=== PATIENT | male | born 1955 | race Caucasian/White ===

== ENCOUNTER → 2021-03-13 | Outpatient (CLI) | payer BC ==
[~2021-03-13] MED LIST: CALCIUM CITRAT1 EA19 PO; K2 PLUS D3 TAB1 EACH PO; METHYLPHENIDATE10 M3 PO; PROSTATE CONTR1 EACH PO; SAW PALMETTO450 M1 PO; SERTRALINE HYDR25 MG PO; TURMERIC538 MG PO; TYLENOL EXTRA500 MG PO; VIAGRA100 MG PO; VITAMIN B121000 MC1 PO; VITAMIN C500 M8 PO; ZINC50 M4 PO
[2021-03-13 16:37] LABS: BASO # 0.1 10*3/uL (0.0-0.1); BASO % 0.7 % (0.0-1.0); EOS # 0.2 10*3/uL (0.0-0.4); EOS % 2.1 % (1.0-4.0); HEMATOCRIT 44.1 % (42.0-52.0); LYMPH # 2.2 10*3/uL (1.3-4.4); LYMPH % 28.6 % (27.0-41.0); MEAN CELL VOLUME 92.5 fl (80.0-94.0); MEAN CORPUSCULAR HGB CONC 33.6 g/dl (33.0-37.0); MEAN PLATELET VOLUME 10.5 fl (9.6-12.3); MONO # 0.6 10*3/uL (0.1-1.0); MONO % 7.9 % (3.0-9.0); NEUT # 4.6 10*3/uL (2.3-7.9); NEUT % 60.3 % (47.0-73.0); PLATELET COUNT AUTOMATED 197 10*3/uL (130-400); RED BLOOD COUNT 4.77 10*6/uL (4.50-5.90); RED CELL DISTRI WIDTH 12.6 % (0-14.5); WHITE BLOOD COUNT 7.7 10*3/uL (4.8-10.8)
[2021-03-13 17:10] LABS: ALBUMIN 3.8 gm/dl (3.1-4.5); ALKALINE PHOSPHATASE 113 U/L (45-117); BUN 23 mg/dl (7-24); CHLORIDE 110 mmol/L (98-107); CHOLESTEROL 132 mg/dL (<200); CREATININE 0.97 mg/dL (0.70-1.30); HDL CHOLESTEROL 31 mg/dl (40-60); LDL CHOLESTEROL 53 mg/dL (9-159); SGOT/AST 28 IU/L (3-35); SGPT/ALT 42 U/L (12-78); SODIUM 140 mmol/L (136-145); TOTAL PROTEIN 7.4 gm/dL (6.4-8.2); TRIGLYCERIDES 238 mg/dl (<150); VLDL CHOLESTEROL 48 mg/dL (6-40)
[2021-03-14 14:09] LABS: t-TRANSGLUTAMINASE (tTG) IGA <2 U/mL (0-3); t-TRANSGLUTAMINASE (tTG) IgG 4 U/mL (0-5)
== END | disposition home or self-care (01) ==
LOC: LAB 16:15
PROVIDERS: Internal Medicine Gastroenterology
DX: Z12.5 Encounter for screening for malignant neoplasm of prostate (principal); R53.83 Other fatigue; A08.8 Other specified intestinal infections; Z13.220 Encounter for screening for lipoid disorders